=== PATIENT | female | born 1955 | race Caucasian/White ===

== ENCOUNTER 2019-06-11 18:24 | Emergency (ER) | payer MEDICAID ==
[~2019-06-11] VITALS: Ht 157.5 cm; Wt 57.2 kg
[2019-06-11 18:35] VITALS: BP 138/72
== END 2019-06-11 18:57 | disposition left against medical advice (07) ==
LOC: ER 18:27
DX: Z53.21 Procedure and treatment not carried out due to patient leaving prior to being seen by health care provider (principal); R07.0 Pain in throat; H92.01 Otalgia, right ear; R05 Cough; I10 Essential (primary) hypertension